=== PATIENT | female | born 1960 | race Caucasian/White ===

== ENCOUNTER → 2017-08-28 | Outpatient (CLI) | payer BC ==
--- NOTE | 2017-08-28 10:28 | RADIOLOGY REPORT PS360 ---
CT ABD PELVIS W/O CONTRAST HISTORY: LOWER ABDOMINAL PAIN,BLOOD IN STOOL lower abdominal pain for one month Patient Age: 56 years: Female Ordering Physician: Arlin Shaikh MD TECHNIQUE: Helical CT scanning performed the abdomen and pelvis. Oral contrast present. No IV contrast utilized. COMPARISON :None available FINDINGS Lung bases appear clear. No active disease. Abdomen/pelvis. Lack of oral and IV contrast decreases sensitivity. Liver, pancreas spleen, adrenals unremarkable on this noncontrast study. Gallbladder. Tiny calcified stone dependent/ inferior gallbladder with minimal slightly hyperdense sludge adjacent to it. Common duct unremarkable.. No calculi along common duct. No biliary ductal dilatation Abnormal unusual grouping of prominent dilated veins anterior to the aortic bifurcation... We see a normal bifurcation of the IVC posterior to this. Normal anatomy of the Diffuse calcified aorta and bifurcation.. However just anterior to this region there is a large grouping of right dilated tortuous veins in appear. The these veins measure up to 11 mm.. A large 10-11 mm vein then extends from this region superior to the left of midline and appears to drain into left aspect the superior mesenteric vein (coronal image 34). This may reflect a varix & unusual varicosity. I do not see any definitive small bowel lesions on this noncontrast study but with this appearance on suggested performing postcontrast CTA study followed by delayed images for CT V the abdomen- to evaluate for potential enhancing small bowel lesion or and to survey for any small bowel AVM. Suggest GI consult for possible small bowel evaluation is well.. Suggest utilizing t low-density small bowel contrast for this exam Only question some upper normal wall thickness at the proximal small bowel left upper quadrant. There are a few scattered small mesenteric lymph nodes. No significant retroperitoneal adenopathy nor pelvic nor inguinal adenopathy. The appendix is normal. Minimal stool throughout colon no small nor large bowel dilatation or obstruction. Previous hysterectomy Kidneys. No hydronephrosis There is a small nonobstructive calculus lower pole left kidney a 2.5 mm size. No osseous lesions. L-spine intact IMPRESSION: 1. Cholelithiasis. Tiny calcified stones with minimal layering sludge at gallbladder 2. Unusual grouping of dilated veins just anterior to aortic bifurcation. -With large vein draining this area leading to superior mesenteric vein. ... Although this area may reflect an unusual varix formation, suggest follow-up postcontrast CTA abdomen (with subsequent 70 seconds delayed images set) to further evaluate this feature and evaluate for other potential findings. Note comments in text. ..Upper normal wall thickness proximal small bowel. ..Scattered small mesenteric nodes observed .. No bowel dilatation or obstruction. 3.Small 2.5 mm nonobstructive calculus lower pole calyx left kidney.
== END ==
LOC: RAD 08:35
DX: R10.30 Lower abdominal pain, unspecified (principal); K92.1 Melena

== ENCOUNTER → 2017-09-14 | Outpatient (CLI) | payer BC ==
--- NOTE | 2017-09-14 13:55 | RADIOLOGY REPORT PS360 ---
[facility] HEPATOBILIARY SCAN HISTORY: Chronic cholecystitis, pain, abnormal gallbladder ultrasound GB SLUDGE ORDERING PHYSICIAN: Maryellen Rodriges MD PATIENT AGE: 56 years COMPARISON: None DOSE: 8.14 mCi technetium Choletec Fatty meal with ensure. No pain reported with the fatty meal. FINDINGS: Homogeneous activity is present within the hepatic parenchyma. Activity is present in the gallbladder by 10 minutes. Activity is present in the small bowel by 30 minutes. The gallbladder ejection fraction is calculated to be 19% which is low The patient did not report pain or other symptoms during the fatty meal. IMPRESSION: 1. No evidence of common or cystic duct obstruction. 2. Low gallbladder ejection fraction of 19%
== END ==
LOC: RAD 10:15
DX: K80.10 Calculus of gallbladder with chronic cholecystitis without obstruction (principal)
CPT/HCPCS: A9537

== ENCOUNTER 2017-10-09 08:57 | Day surgery (SDC) | payer BC ==
[~2017-10-09] VITALS: Ht 157.5 cm; Wt 67.6 kg
--- NOTE | 2017-10-09 10:10 | Operative Note ---
Colonoscopy ([facility]) Procedure date: 10/09/17 Date of : 56 Procedure:Colonoscopy Colonoscopy with cold snare polypectomy Indications: Mrs. Shaikh is a 57-year-old female who is here for diagnostic colonoscopy due to abdominal pain and rectal bleeding. The patient did have a CAT scan that showed a prominent cluster of dilated veins just anterior to the aortic bifurcation. She did have a small incidental 11 mm pancreatic lesion that was cystic. She also had gallstones and early diverticulosis. The patient does state that her brother had pancreatic cancer. The patient had some rectal bleeding intermittently. She reports LEFT sided abdominal pain but previously had bilateral pain. She reports no weight loss or family history of colon cancer. This is her first colonoscopy. Performing Provider: Dominga Todd MD Referrring Provider: Braxton Rodriges M.D. Sedation: MAC sedation Procedure: Prior to the procedure, a history and physical exam was performed, and patient medications and allergies were reviewed. The risks and benefits of the procedure and the sedation options and risks were discussed with the patient. All questions were answered and informed consent was obtained. Patient identification and proposed procedure were verified by the physician and the nurse. The patient was placed in a left lateral decubitus position. Throughout the procedure, the patient's blood pressure, pulse, and oxygen saturations were monitored continuously. Findings: On digital rectal examination there was normal rectal tone. There were no external hemorrhoids. The colonoscope was introduced through the anal canal to the rectum and advanced to the cecum. The ileocecal valve and appendiceal orifice were identified. The scope was advanced a short distance into the ileum which appeared grossly normal. The scope was then withdrawn into the colon. There were 3 colon polyps identified in the cecum 1, transverse 1 and descending. These ranged in size from 4-6 mm and were all removed via cold snare polypectomy. There were very mildly scattered diverticuli throughout the descending and sigmoid colon (LEFT colon). The rectum itself was normal. Upon retroflexion within the rectum there were grade 1-2 internal hemorrhoids. Impressions: 1. Diminutive colonic polyps 3 2. Mild left-sided diverticulosis 3. Grade 1-2 internal hemorrhoids Recommendations: I will follow-up the polyp pathology and recommend repeat colonoscopy again in 5 years based upon the polyp histology. I would encourage dietary measures, fiber bulk supplementation and probiotic therapy on a long-term daily maintenance basis. Complications: None EBL (ml): 0 at [id number]
[2017-10-09 11:17] VITALS: BP 117/69
== END 2017-10-09 11:10 | disposition home or self-care (01) ==
LOC: SDC 08:57
PROVIDERS: Internal Medicine Gastroenterology
PROC: 0DBL8ZX Excision of Transverse Colon, Via Natural or Artificial Opening Endoscopic, Diagnostic (ICD-10-PCS; 2017-10-09)
PROC: 0DBM8ZZ Excision of Descending Colon, Via Natural or Artificial Opening Endoscopic (ICD-10-PCS; 2017-10-09)
PROC: 0DBH8ZX Excision of Cecum, Via Natural or Artificial Opening Endoscopic, Diagnostic (ICD-10-PCS; principal; 2017-10-09 10:30)
DX: D12.0 Benign neoplasm of cecum (principal); D12.3 Benign neoplasm of transverse colon; K63.5 Polyp of colon; K57.30 Diverticulosis of large intestine without perforation or abscess without bleeding; K64.0 First degree hemorrhoids; K64.1 Second degree hemorrhoids